=== PATIENT | female | born 1980 | race African-American/Black ===

== ENCOUNTER 2019-03-08 19:48 | Emergency (ER) | payer MEDICAID ==
[~2019-03-08] VITALS: Ht 162.6 cm; Wt 77.0 kg
[2019-03-09 02:12] VITALS: BP 131/78
== END 2019-03-09 02:19 | disposition home or self-care (01) ==
LOC: ER 19:48
DX: L03.012 Cellulitis of left finger (principal)
CPT/HCPCS: 73130; 99283

== ENCOUNTER 2023-09-17 02:39 | Emergency (ER) | payer MEDICAID, OTHER ==
[~2023-09-17] VITALS: Ht 162.6 cm; Wt 65.0 kg
[2023-09-17 02:57] VITALS: BP 120/73; PULSE 91; RESP 18; TEMP 97.8; O2SAT 100
== END 2023-09-17 06:23 | disposition left against medical advice (07) ==
LOC: ER 02:39
DX: M79.674 Pain in right toe(s) (principal); Z53.21 Procedure and treatment not carried out due to patient leaving prior to being seen by health care provider

== ENCOUNTER 2023-09-25 03:12 | Emergency (ER) | payer MEDICAID ==
[~2023-09-25] VITALS: Ht 162.6 cm; Wt 64.0 kg
[2023-09-25 03:20] VITALS: BP 120/56; PULSE 81; RESP 15; TEMP 97.7; O2SAT 99
== END 2023-09-25 06:11 | disposition left against medical advice (07) ==
LOC: ER 03:12
DX: H02.849 Edema of unspecified eye, unspecified eyelid (principal); Z53.21 Procedure and treatment not carried out due to patient leaving prior to being seen by health care provider

== ENCOUNTER 2023-12-18 03:56 | Emergency (ER) | payer MEDICAID ==
[~2023-12-18] VITALS: Ht 162.6 cm; Wt 67.0 kg
[2023-12-18 04:02] VITALS: O2SAT 99
[2023-12-18 04:05] VITALS: BP 122/50; PULSE 84; TEMP 98; O2SAT 99
[2023-12-18] MEDS ORDERED: TERB250T88 MT (05:20)
[2023-12-18 05:30] VITALS: RESP 19
[2023-12-18 05:42] LABS: HCG SCREEN NEGATIVE
== END 2023-12-18 08:17 | disposition home or self-care (01) ==
LOC: ER 03:56
DX: B35.1 Tinea unguium (principal); Z00.00 Encounter for general adult medical examination without abnormal findings
CPT/HCPCS: 84703; 99283

== ENCOUNTER 2024-02-10 00:17 | Emergency (ER) | payer MEDICAID ==
[~2024-02-10] VITALS: Ht 162.6 cm; Wt 67.0 kg
[~2024-02-10 00:17] MED LIST: TERB250T88 MT
[2024-02-10 00:36] VITALS: O2SAT 100
[2024-02-10] MEDS: DEXAMETHASONE 10 MG/ML VIAL IM ONE (01:00)
[2024-02-10] MEDS ORDERED: HYDR453.3 TP (01:18)
[2024-02-10] MEDS ORDERED: FAMO-135 MT (01:18)
[2024-02-10 01:37] VITALS: BP 120/55; PULSE 81; RESP 18; TEMP 36.89184; O2SAT 100
== END 2024-02-10 01:38 | disposition home or self-care (01) ==
LOC: ER 00:17
DX: R21 Rash and other nonspecific skin eruption (principal)
CPT/HCPCS: 96372; 99283; J1100; Z7610